=== PATIENT | female | born 1980 | race Caucasian/White ===

== ENCOUNTER 2020-08-11 10:25 | Emergency (ER) | payer MEDICAID ==
[~2020-08-11] VITALS: Ht 154.9 cm; Wt 58.1 kg
[2020-08-11] MEDS ORDERED: MORPHINE SULFATE 4 MG/ML, 1ML ONE (11:47)
[2020-08-11] MEDS ORDERED: ONDANSETRON 2MG/ML, 2ML ONE (11:47)
[2020-08-11 11:58] LABS: BASOPHILS % (AUTO) 1 % (0-1); EOSINOPHILS % (AUTO) 1 % (1-7); LYMPHOCYTES % (AUTO) 25 % (22-44); MEAN CORPUSCULAR HEMOGLOBIN 33.6 pg (27.0-34.8); MEAN CORPUSCULAR HGB CONC 34.6 g/dL (32.4-35.8); MEAN PLATELET VOLUME 7.6 fL (7.4-10.4); MONOCYTES % (AUTO) 6 % (2-9); NEUTROPHILS % (AUTO) 67 % (42-75); PLATELET COUNT 329 x10^3/uL (130-400); RED BLOOD COUNT 4.42 x10^6/uL (3.82-5.3); RED CELL DISTRIBUTION WIDTH 12.9 % (9.6-15.2)
[2020-08-11] MEDS ORDERED: SODIUM CHLORIDE 0.9% 1,000ML IVBOLUS ONE (12:00)
[2020-08-11] MEDS ORDERED: ONDANSETRON 2MG/ML, 2ML IVPush ONE (12:00)
[2020-08-11] MEDS ORDERED: MORPHINE SULFATE 4 MG/ML, 1ML IVPush PRN (12:00)
[2020-08-11 12:01] LABS: ALANINE AMINOTRANSFERASE 50 U/L (12-78); ALBUMIN 3.9 g/dL (3.4-5.0); ANION GAP 6 mmol/L (5-15); CALCIUM 9.2 mg/dL (8.5-10.1); CHLORIDE 110 mmol/L (98-107); CREATININE 0.73 mg/dL (0.55-1.02)
[2020-08-11 12:04] LABS: ALKALINE PHOSPHATASE 63 U/L (45-117); BILIRUBIN,TOTAL 0.4 mg/dL (0.2-1.0); TOTAL PROTEIN 7.3 g/dL (6.4-8.2)
--- NOTE | 2020-08-11 12:06 | NUR ---
PT IN HOSPITAL GOWN. PT ABLE TO AMBULATE TO BATHROOM TO PROVIDE URINE SAMPLE. IV STARTED. ORDERED FLUIDS AND MEDS GIVEN. PT ON VITALS MONITORS. WILL CONTINUE TO MONITOR.
[2020-08-11 12:15] LABS: MICROSCOPIC NOT IND
[2020-08-11] MEDS ORDERED: OMNIPAQUE 350 MG/ML, 100ML BOTTLE ONE (12:28)
[2020-08-11 13:00] VITALS: BP 100/62
== END 2020-08-11 14:11 | disposition home or self-care (01) ==
LOC: ED 11:27
DX: R10.32 Left lower quadrant pain (principal); R11.0 Nausea
CPT/HCPCS: 36415; 74177; 80053; 81003; 83690; 85025; 96361; 96374; 96375; 99285; J2270; J2405; J7030; Q9967